=== PATIENT | female | born 1960 | race Caucasian/White ===

== ENCOUNTER 2022-05-06 06:22 | Day surgery (SDC) | payer OTHER ==
[2022-05-06] MEDS ORDERED: Ringers Lactate 1,000 ML IV ONE (06:42)
[2022-05-06] MEDS ORDERED: LIDOCAINE 1% MPF 5 ML VIAL ONE (07:31)
[2022-05-06] MEDS ORDERED: propofoL 200 MG/20 ML VIAL IV ONE ×2 (07:31→07:32)
--- NOTE | 2022-05-06 08:33 | ENDO RPT ---
[address], [address] COLONOSCOPY PROCEDURE REPORT EXAM DATE: 05/06/2022 PATIENT NAME: Flakita Tomas MR #: [id number] BIRTHDATE: 1960 ATTENDING: Eliel Reyes DR STATUS: outpatient SENIOR COPYWRITER: Dulce Hooker and Sara Barry RN INDICATIONS: The patient is a 62 yr old Female here for a colonoscopy due to colon cancer screening PROCEDURE PERFORMED: Colonoscopy with biopsy - cold polypectomy MEDICATIONS: Per Anesthesia. ESTIMATED BLOOD LOSS: None CONSENT: The patient understands the risks and benefits of the procedure and understands that these risks include, but are not limited to: sedation, allergic reaction, infection, perforation and/or bleeding. Alternative means of evaluation and treatment include, among others: physical exam, x-rays, and/or surgical intervention. The patient elects to proceed with this endoscopic procedure. DESCRIPTION OF PROCEDURE: During intra-op preparation period all mechanical medical equipment was checked for proper function. Hand hygiene and appropriate measures for infection prevention was taken. Procedure, possible complications, alternatives including, but not limited to possibility of bleeding, perforation, tear, infection, sepsis, need for surgery, need for blood transfusion, were explained to the patient. After the risks, benefits and alternatives of the procedure were thoroughly explained, Informed consent was verified, confirmed and timeout was successfully executed by the treatment team. The patient was placed in the left lateral position. A digital rectal exam was performed and revealed internal hemorrhoids. After appropriate level of anesthesia, the scope was passed. The EC-[id number] ([id number]) endoscope was introduced through the anus and advanced to the cecum, which was identified by both the appendix and ileocecal valve. The quality of the prep was fair. The instrument was then slowly withdrawn as the colon was fully examined. Scope withdrawal time was 10 minutes. COLON FINDINGS: There was mild diverticulosis noted in the sigmoid colon with associated muscular hypertrophy. No bleeding was noted from the diverticulosis. Two smooth sessile polyps ranging between 3-5mm in size with friable surfaces were found in the descending colon and rectum. A polypectomy was performed with a cold snare and with cold forceps. The resection was complete, the polyp tissue was completely retrieved and sent to histology. Small internal hemorrhoids were found. Retroflexed views revealed no abnormalities. The scope was then completely withdrawn from the patient and the procedure terminated. ADVERSE EVENTS: There were no complications. IMPRESSIONS: 1. There was mild diverticulosis noted in the sigmoid colon 2. Two sessile polyps ranging between 3-5mm in size were found in the descending colon and rectum; polypectomy was performed in a piecemeal fashion with a cold snare and with cold forceps 3. Small internal hemorrhoids RECOMMENDATIONS: 1. avoid NSAIDS for 2 weeks 2. await biopsy results 3. follow-up: office 2 week(s) 4. Monitor for any evidence of rectal bleeding. 5. yearly hemoquant 6. yearly hemoccult starting in 4 years 7. continue surveillance 8. hemorrhoidal hygiene 9. increase dietary water 10. low fiber / diverticular diet RECALL: for Colonoscopy, pending biopsy results. Eliel Reyes DR eSigned: Eliel Reyes DR 05/06/2022 8:32 AM cc: CPT CODES: ICD9 CODES: PATIENT NAME: Flakita Tomas MR#: [id number]
[2022-05-06 09:03] VITALS: BP 137/66; TEMP 97.6; O2SAT 98
== END 2022-05-06 09:10 | disposition home or self-care (01) ==
LOC: OR 06:22
PROVIDERS: ATTEND Surgery
PROC: 0DBP8ZX Excision of Rectum, Via Natural or Artificial Opening Endoscopic, Diagnostic (ICD-10-PCS; 2022-05-06)
PROC: 0DBM8ZX Excision of Descending Colon, Via Natural or Artificial Opening Endoscopic, Diagnostic (ICD-10-PCS; principal; 2022-05-06 08:00)
DX: Z12.11 Encounter for screening for malignant neoplasm of colon (principal); Z20.822 Contact with and (suspected) exposure to COVID-19; K63.5 Polyp of colon
CPT/HCPCS: 88305; 45385; 45380; U0003; J2704 ×2; J7120